=== PATIENT | female | born 1990 | race African-American/Black ===

== ENCOUNTER 2018-08-25 06:52 | Outpatient (CLI) | payer BC ==
--- NOTE | 2018-08-25 09:12 | ULT ---
PELVIC ULTRASOUND: HISTORY: Pelvic pain. Previous tubal ligation. COMPARISON: None. TECHNIQUE: Transabdominal and endovaginal imaging of the pelvis is performed. Overlies are interrogated with gr ay scale, color flow, Doppler imaging, and spectral waveform analysis. FINDINGS: Retroverted uterus is identified . There are no myometrial masses. The uterus measures 6.3 x 4.1 x 4.9 cm. Endometrium has a homogeneous texture echotexture measuring 0.8 cm. The right ovary is not appreciated. No free fluid. The left ovary has a normal echotexture, measuring 2.1 x 1.6 x 3.1 cm. There is a 1.7 x 1.1 x 1.6 cm anechoic focus, compatible with a left ovarian dominant follicle. DOPPLER: There is flow to the left ovary. There are increased vessels in the left adnexa. IMPRESSION: 1. Dominant follicle in the left ovary. 2. Increased vessels in the left adnexa. Correlate for venous congestion. POS: [facility]
== END 2018-08-25 06:53 | disposition home or self-care (01) ==
LOC: BICULT 06:52
PROVIDERS: ATTEND Physician Assistant
DX: R10.2 Pelvic and perineal pain (principal)
CPT/HCPCS: 76856